=== PATIENT | female | born 1985 | race Asian ===

== ENCOUNTER 2018-01-03 06:17 | Inpatient (IN) | payer OTHER ==
[2018-01-03] MEDS ORDERED: IBUPROFEN 600 MG TAB PO PRN (07:18)
[2018-01-03] MEDS ORDERED: LIDOCAINE 1% 300 MG/30 ML SDV SC PRN (07:18)
[2018-01-03] MEDS ORDERED: OLIVE OIL 118 ML BTL MISC PRN (07:18)
[2018-01-03] MEDS ORDERED: TERBUTALINE SULFATE 1 MG/ML VIAL IV PRN (07:18)
[2018-01-03] MEDS ORDERED: LR 1,000 ML IV PRN (07:18)
[2018-01-03] MEDS ORDERED: MISOPROSTOL 200 MCG TAB PR PRN (07:18)
[2018-01-03] MEDS ORDERED: OXYTOCIN/RINGERS LACTATE 1,000 ML IV PRN (07:18)
[2018-01-03] MEDS ORDERED: EPSOM SALT 454 GM TP PRN (07:18)
--- NOTE | 2018-01-03 07:18 | PDGENHP ---
History and Physical History and Physical: Care: [facility] HPI: Patient is a 32 yo with IUP @ 39-6 weeks that presents to L&D with complaints of contractions since 10pm, she states stronger and more intense since 0200. she denies any LOF, VB. She reports +FM. She is rating contractions 09/12. EDC: 01/04/18 which is based on LMP: 03/30/17 which is known and consistent with Ultrasound at 11 weeks. Her is complicated by: BMI19, rubella low immune Review of Systems: Constitutional: Denies any fever, chills, or fatigue HEENT: denies any visual changes, difficulty swallowing, hearing loss Cardiovascular: Denies any chest pain, palpitations, leg swelling Respiratory: denies any cough, wheezing, or shortness of breathe GI: Denies any nausea, vomiting, diarrhea, constipation : denies any dysuria, urgency, frequency, vaginal bleeding Musculoskeletal: denies any muscle or bone pain Skin: denies any rashes Neuro: denies any headache, seizures, lightheadedness, dizziness, or loss of consciousness Psychiatric: denies any depression, anxiety, or SI/HI thoughts HISTORY: Previous OB history: G1 Past medical history: BMI 19, rubella Low immune Past surgical history:oral surgery 2007, mole removal 2008 Social: Denies any alcohol, tobacco, or drug use. Family history: Not relevant Medications: PNV, DHA Allergies (list reaction): NKDA LABS: Rh: A+ ABS: Neg Rubella: Low Immune HbsAg: NR HIV: NR VDRL: NR 1hr: 92 GC: Neg Chlamydia: Neg Pap: Normal GBS: Negative BMI: (prepreg) 19 PHYSICAL EXAM: Constitutional: WN, A&Ox3 HEENT: normocephalic atraumatic, supple Skin: Warm, dry, intact Heart: RRR, no murmur Chest: CTA-B Abdomen: Soft, nontender, gravid SVE: 4/80/-1 Extremities: no edema, negative homans sign Neuro: grossly normal Psych: normal affect assessment: FHT baseline 130 +accels, no decels, moderate variability Contractions: toco q 6 Assessment: 1) 32yo with IUP@39-6wks () 2) early/active labor 3) GBS negative 4) Cat 1 FHR tracing Plan: 1) Admit to L&D 2) expectant management 3) hydrotherapy 4) MMR PP 5) anticipate Today's visit was approximately 30 min, of which >50% of visit 20 min, was spent face to face with pt on direct counseling/coordination of care.
[2018-01-03] MEDS ORDERED: OXYTOCIN 10 UNIT/ML VIAL ONE (08:13)
[2018-01-03] MEDS ORDERED: LIDOCAINE 1% 300 MG/30 ML SDV ONE (08:13)
[2018-01-03] MEDS ORDERED: TERBUTALINE SULFATE 1 MG/ML VIAL ONE (08:13)
[2018-01-03] MEDS ORDERED: OLIVE OIL 118 ML BTL ONE (08:13)
[2018-01-03] MEDS ORDERED: AMMONIA AROMATIC 1 EACH AMP IH ONE (08:13)
[2018-01-03] MEDS ORDERED: MISOPROSTOL 200 MCG TAB ONE (08:14)
[2018-01-03 10:41] LABS: PLATELET COUNT 170 10^3/uL (150-400)
--- NOTE | 2018-01-03 10:41 | OBPROG ---
Labor Progress Note Assessment/Plan: Assessment: Active labor progressing; fht's 125; no decels Plan: 01/03/18 10:39 Expectant Management Subjective/Intrapartum Course: 01/03/18 10:38 Contractions increasing in frequency and strength. Coping well. Starting to feel pressure "in her bottom" - SVE Dilation (cm): 6 Effacement (%): 90 Station: -1 Membranes: Intact - Contraction Pattern Assessment Current Contraction Pattern: Regular - FHR Assessment Wiggins FHR (bpm): 125 (no decels; intermittent monitoring) Oxytocin Orders Assessment - Pre-Induction/Augmentation Assessment Gestational Age: 39 week(s) and 6 day(s) ICD10 Worksheet Patient Problems: Problems Problem Status Onset Acute - ICD10 Problem Qualifiers (1)
--- NOTE | 2018-01-03 15:05 | OBPROG ---
Labor Progress Note Assessment/Plan: Assessment: Active labor progressing; fht's 125; no decels Plan: 01/03/18 10:39 Expectant Management 01/03/18 14:59 Active labor progressing; fht's 130 - 140's no decels Expectant management Subjective/Intrapartum Course: 01/03/18 10:38 Contractions increasing in frequency and strength. Coping well. Starting to feel pressure "in her bottom" 01/03/18 14:59 Coping well with contractions, moaning and breathing through. Feels need to "poop". Requesting VE Objective: 01/03/18 10:25 Patient ABO/Rh A POSITIVE 01/03/18 10:25 - SVE Dilation (cm): 8 Effacement (%): 90 Station: -1 Membranes: Intact - Contraction Pattern Assessment Current Contraction Pattern: Regular - FHR Assessment Wiggins FHR (bpm): 130 (130-140; no decels; intermittent monitoring) Oxytocin Orders Assessment - Pre-Induction/Augmentation Assessment Gestational Age: 39 week(s) and 6 day(s) ICD10 Worksheet Patient Problems: Problems Problem Status Onset Acute - ICD10 Problem Qualifiers (1)
--- NOTE | 2018-01-03 17:25 | OBDEL ---
Info Type: Vaginal Presentation at Delivery: Face L&D Analgesia/Anesthesia Type: None GBS+: No - Hospital Course Intrapartum: 01/03/18 10:38 Contractions increasing in frequency and strength. Coping well. Starting to feel pressure "in her bottom" 01/03/18 14:59 Coping well with contractions, moaning and breathing through. Feels need to "poop". Requesting VE Indications for Delivery: Spontaneous Labor Vaginal Delivery - Delivery Provider Delivery Physician/CNM: Lorena Zavaleta - Labor and Delivery Onset of Contractions Date: 01/02/18 Onset of Contractions Time: 22:54 Onset of Contractions Type: Spontaneous Rupture of Membranes Date: 01/03/18 Rupture of Membranes Time: 16:28 Rupture of Membranes Type: Spontaneous Amniotic Fluid Color: Clear Dilation Complete Date: 01/03/18 Dilation Complete Time: 15:45 Placenta Delivery Date: 01/03/18 Placenta Delivery Time: 16:43 Total Hours of Labor: 17 Laceration: 1st Degree (clitoral laceration; bleeding. Repaired for hemostasis) , 2nd Degree (bilateral sulcus laceration and perineal) Vaginal Sponge Count Correct: Yes Vaginal Needle Count Correct: Yes Vaginal Sweep Performed: Yes EBL: 300 Delivery Events: Nuchal Cord, Other (Specify) (nuchal arm; true knot in cord) Data RONALDO: 01/04/18 Gestational Age: 39 week(s) and 6 day(s) Wiggins Delivery Date: 01/03/18 Delivery Time: 16:34 Sex of Infant: Female Score (1 Min): 8 Score (5 Min): 9 ICD10 Worksheet Patient Problems: Problems Problem Status Onset Acute - ICD10 Problem Qualifiers (1)
[2018-01-03] MEDS ORDERED: HYDROCORTISONE 0.5% CREAM TP PRN (17:26)
[2018-01-03] MEDS: ACETAMINOPHEN 325 MG TAB PO SCH (19:05)
[2018-01-04] MEDS: ACETAMINOPHEN 325 MG TAB PO SCH ×3 (02:20→19:15)
[2018-01-04] MEDS: IBUPROFEN 600 MG TAB PO SCH ×3 (02:21→19:15)
--- NOTE | 2018-01-04 10:09 | OBPP ---
Progress Note Assessment/Plan: Assessment: PP day 1. Breast feeding well. Plan: 1. support 2. discharge home tomorrow. 01/04/18 10:07 Objective: 01/03/18 10:25 Patient ABO/Rh A POSITIVE 01/03/18 10:25 Temp Pulse Resp BP Pulse Ox 36.1 C 96 16 110/75 96 01/04/18 00:00 01/04/18 08:30 01/04/18 08:30 01/04/18 00:00 01/04/18 08:30 VSS. Will assess orthostatic BP due to one episode of dizziness when standing. Uterine Position/Fundal Height: At Umbilicus Uterine Tone: Firm
[2018-01-04] MEDS: IBUPROFEN 200 MG TAB PO PRN ×2 (10:20→18:56)
[2018-01-05] MEDS: IBUPROFEN 600 MG TAB PO SCH ×4 (07:00→12:46)
[2018-01-05] MEDS: ACETAMINOPHEN 325 MG TAB PO SCH ×4 (07:01→12:46)
--- NOTE | 2018-01-05 12:21 | OBGCSDC ---
General Delivery Information - General Info : 1 Para: 1 Abortions: 0 Type: Vaginal L&D Analgesia/Anesthesia Type: Local Admission Date: 01/03/18 Labs: Patient ABO/Rh A POSITIVE 01/03/18 10:25 Hct 41.9 % (38.0-47.0) 01/03/18 10:25 - Hospital Course Intrapartum: 01/03/18 10:38 Contractions increasing in frequency and strength. Coping well. Starting to feel pressure "in her bottom" 01/03/18 14:59 Coping well with contractions, moaning and breathing through. Feels need to "poop". Requesting VE : 01/05/18 14:17 S) Pt doing well, reports min pain and bleeding. she is ambulating and voiding without difficulty. She is . She desires discharge home today. O) VSS, afebrile constitutional: WNF, A&Ox3 HEENT: normocephalic, atraumatic, supple Heart: RRR, No murmur Chest: CTA-B Breasts: soft, nontender, not engorged, nipples normal (no redness or cracks/ bleeding) Abdomen: Soft, nontender Uterus: Firm at U-2 Lochia: Minimal rubra Perineum: Intact, healing well Extremities: Trace edema, and negative Clarisa's sign Neuro: Grossly normal A)32 -year-old S/P PPD#2 P) Discharge home today Continue Pelvic rest x6wks Discussed danger signs (infection, preeclampsia, depression, heavy bleeding, etc ) RTO in 2/4/6 weeks Vaginal - Delivery Provider Delivery Physician/CNM: Lorena Zavaleta - Diagnosis Labor: Spontaneous Rupture of Membranes Type: Spontaneous Amniotic Fluid Color: Clear Laceration: 1st Degree (clitoral laceration; bleeding. Repaired for hemostasis) , 2nd Degree (bilateral sulcus laceration and perineal) Delivery Events: Nuchal Cord, Other (Specify) (nuchal arm; true knot in cord) - Delivery EBL: 300 Data RONALDO: 01/04/18 Gestational Age: 40 week(s) and 1 day(s) Wiggins Delivery Date: 01/03/18 Delivery Time: 16:34 Sex of : Female [place] Weight (gm): 0 g Score (1 Min): 8 Score (5 Min): 9 Discharge Information - Discharge Information Prescriptions: Ibuprofen [Motrin (*)] 600 mg PO Q6H #60 tab Condition: Good
[2018-01-05] MEDS ORDERED: DOCUSATE SODIUM 100 MG CAP PO SCH (12:45)
[2018-01-05 14:10] VITALS: BP 102/66
== END 2018-01-05 15:31 | disposition home or self-care (01) | DRG 807 ==
LOC: FLD 06:17 → OBSVTOIN 09:28 → FOB 20:15
PROVIDERS: ADMIT Advanced Practice Midwife; ATTEND Advanced Practice Midwife
DX: O70.1 Second degree perineal laceration during delivery (principal); O69.2XX0 Labor and delivery complicated by other cord entanglement, with compression, not applicable or unspecified; Z3A.40 40 weeks gestation of pregnancy; Z23 Encounter for immunization; Z37.0 Single live birth
CPT/HCPCS: J2590; J3105

== ENCOUNTER → 2018-01-08 | Outpatient (CLI) | payer OTHER | LOC: FLACT 11:46 | PROVIDERS: ATTEND Advanced Practice Midwife | DX: Z39.1 Encounter for care and examination of lactating mother (principal) | CPT/HCPCS: G0463 ==